=== PATIENT | female | born 1955 | race Caucasian/White ===

== ENCOUNTER → 2017-09-06 | Outpatient (CLI) | payer BC | LOC: FIMAGING 13:55 | PROVIDERS: ATTEND Family Medicine | DX: Z12.31 Encounter for screening mammogram for malignant neoplasm of breast (principal) ==

== ENCOUNTER 2017-11-22 13:26 | Emergency (ER) | payer BC ==
--- NOTE | 2017-11-22 13:48 | CPEKG ---
Heart Rate: 92 RR Interval: 652 P-R Interval: 160 QRSD Interval: 84 QT Interval: 356 QTC Interval: 441 P [place]: 65 QRS [place]: 18 T Wave [place]: 31 EKG Severity - OTHERWISE NORMAL ECG - EKG Impression: SINUS RHYTHM Electronically Signed By: Carlito Moise 22-Nov-2017 20:40:51
--- NOTE | 2017-11-22 13:53 | EDPHY ---
HPI/HX/ROS/PE/MDM Narrative: CHIEF COMPLAINT: Right-sided chest pain HPI: The patient is a 62 y/o female complaining of sudden onset sharp right-sided chest pain onset at 12:00, 2 hours ago, while she was on a bike ride. She had a similar pain around 8 years ago while training for a marathon. At this time she had a normal cardiac workup that included labs, EKG, and a cardiac stress test. For the last several months the chest pain has occurred while cycling, but it has always improved on it's own. Today while she was 35 miles into her bike ride , this sharp, constant, shooting chest pain began. These symptoms did not improve, so she decided to present to the emergency department. Since arriving to the ED and lying down, her chest pain has improved and she does not feel short of breath. Moving her right arm has no effect on the pain. She denies pulmonary or cardiac problems, calf swelling. 10 days ago she began to take Wellbutrin. Denies headache, abdominal pain, vomiting, urinary or bowel complaints, numbness, paresthesia, fever. REVIEW OF SYSTEMS: Aside from elements discussed in the HPI, a comprehensive 10-point review of systems was reviewed and is negative. PMH: Denies SOCIAL HISTORY: at bedside, lives in [place], retired PHYSICAL EXAM: General: Patient is alert, in no acute distress. ENT: Eyes are normal to inspection. ENT inspection normal. Neck: Normal inspection. Full range of motion. Respiratory: No respiratory distress. Breath sounds normal bilaterally. Cardiovascular: Regular rate and rhythm. Strong peripheral pulses. Normal cap refill. Abdomen: The abdomen is nontender to palpation. There are no peritoneal signs. There are normal bowel sounds. Back: Normal to inspection. No tenderness to palpation. Skin: Normal color. No rash. Warm and dry. Extremities: Normal appearance. Full range of motion. Neuro: Oriented x3. Normal motor function. Normal sensory function. ED Course: 1346: EKG was ordered and interpreted by myself. Please see [facility] system for official reading. 1440: Patient has a normal chest x-ray. 1513: Reassessed patient and discussed normal laboratory and imaging findings. She is declining a second troponin. I have advised her to follow up with a clinical laboratory assistant. Return precautions provided; patient is comfortable with this plan. MDM: This patient presents with atypical chest pain that occurred during long distance cycle ride. Her workup in the ED is normal including ECG, CXR and troponin. She does not endorse risk factors for PE nor pleuritic nature of chest pain, and since her symptoms have completely resolved, I think PE is very unlikely. Her HEART score is very low and I discussed this with her. She declines additional troponin or admission to the hospital for further testing. She understands that we cannot rule out CAD or other pathology fully here in the ED and I strongly recommended urgent follow-up with a [facility], and have given her referral to [facility]. I advised her to discontinue exercise until seen by Cardiology and she agrees. - Data Points Imaging Results: Imaging Impressions Chest X-Ray 11/22/17 14:18 Impression: No acute pulmonary disease. Imaging: I viewed and interpreted images myself Laboratory Results: Laboratory Results 11/22/17 13:57 11/22/17 13:57 11/22/17 11/22/17 11/22/17 13:57 13:57 13:57 WBC 10.40 10^3/uL H 10^3/uL (3.80-9.50) RBC 4.48 10^6/uL 10^6/uL (4.18-5.33) Hgb 13.4 g/dL g/dL (12.6-16.3) Hct 40.1 % % (38.0-47.0) MCV 89.5 fL fL (81.5-99.8) MCH 29.9 pg pg (27.9-34.1) MCHC 33.4 g/dL g/dL (32.4-36.7) RDW 14.1 % % (11.5-15.2) Plt Count 308 10^3/uL 10^3/uL (150-400) MPV 9.5 fL fL (8.7-11.7) Neut % (Auto) 71.2 % % (39.3-74.2) Lymph % (Auto) 21.9 % % (15.0-45.0) [place] % (Auto) 6.3 % % (4.5-13.0) Eos % (Auto) 0.2 % L % (0.6-7.6) Baso % (Auto) 0.2 % L % (0.3-1.7) Nucleat RBC Rel Count 0.0 % % (0.0-0.2) Absolute Neuts (auto) 7.41 10^3/uL H 10^3/uL (1.70-6.50) Absolute Lymphs (auto) 2.28 10^3/uL 10^3/uL (1.00-3.00) Absolute Monos (auto) 0.65 10^3/uL 10^3/uL (0.30-0.80) Absolute Eos (auto) 0.02 10^3/uL L 10^3/uL (0.03-0.40) Absolute Basos (auto) 0.02 10^3/uL 10^3/uL (0.02-0.10) Absolute Nucleated RBC 0.00 10^3/uL 10^3/uL (0-0.01) Immature Gran % 0.2 % % (0.0-1.1) Immature Gran # 0.02 10^3/uL 10^3/uL (0.00-0.10) Sodium 136 mEq/L mEq/L (135-145) Potassium 5.0 mEq/L mEq/L (3.3-5.0) Chloride 101 mEq/L mEq/L (97-110) Carbon Dioxide 23 mEq/l mEq/l (22-31) Anion Gap 12 mEq/L mEq/L (8-16) BUN 21 mg/dL mg/dL (7-23) Creatinine 0.9 mg/dL mg/dL (0.6-1.0) Estimated GFR > 60 Glucose 89 mg/dL mg/dL (70-100) Calcium 10.3 mg/dL mg/dL (8.5-10.4) POC Troponin I 0.02 ng/mL ng/mL (0.00-0.08) Medications Given: Discontinued Medications Sodium Chloride (Ns) 1,000 mls @ 0 mls/hr IV EDNOW ONE; Wide Open PRN Reason: Protocol Stop: 11/22/17 14:19 Last Admin: 11/22/17 14:35 Dose: 1,000 mls Point of Care Test Results: Chemistry 11/22/17 13:57 POC Troponin I 0.02 ng/mL ng/mL (0.00-0.08) General Time Seen by Provider: 11/22/17 13:52 Initial Vital Signs: Initial Vital Signs Temperature (C) 36.6 C 11/22/17 13:30 Heart Rate 101 H 11/22/17 13:30 Respiratory Rate 20 11/22/17 13:30 Blood Pressure 160/97 H 11/22/17 13:30 O2 Sat (%) 95 11/22/17 13:30 O2 Delivery Mode Room Air Allergies/Adverse Reactions: No Known Allergies Allergy (Unverified 11/22/17 13:29) Home Medications: Medication Instructions Recorded Wellbutrin 100mg (*) 11/22/17 Departure - Departure Disposition: Home, Routine, Self-Care Clinical Impression: Chest pain, Shortness of breath Condition: Good Instructions: Chest Pain (ED), Shortness of Breath (ED) Additional Instructions: Follow-up with your primary doctor within 72 hours. Return to the Emergency Department for fever, chest pain, shortness of breath, increasing pain or other worsening of condition. Follow up with a clinical laboratory assistant for further testing, as soon as possible, within one week. As we discussed, it is impossible to fully rule out heart disease as the cause of your chest pain in the emergency department. We would be happy to reevaluate you and observe you in the hospital at any time. Referrals: Aaron Interiano MD [Primary Care Provider] - As per Instructions uSdhakar Beauchamp MD [Medical Doctor] - As per Instructions Report Scribed for: Carlito Moise Report Scribed by: Zaida Adhikari Date of Report: 11/22/17 Time of Report: 13:53 Physician Review and Approval Statement: Portions of this note were transcribed by an ED scribe. I personally performed the history, physical exam, and medical decision making; and confirm the accuracy of the information in the transcribed note.
[2017-11-22] MEDS ORDERED: NS 1,000 ML IV ONE (14:18)
[2017-11-22 14:26] LABS: PLATELET COUNT 308 10^3/uL (150-400)
[2017-11-22 15:55] VITALS: BP 150/88
== END 2017-11-22 15:53 | disposition home or self-care (01) ==
DX: R07.9 Chest pain, unspecified (principal); R06.02 Shortness of breath; E86.9 Volume depletion, unspecified
CPT/HCPCS: 84484-PO

== ENCOUNTER → 2017-12-23 | Outpatient (CLI) | payer BC ==
[~2017-12-23] MED LIST: IOPAMIDOL (ISOVUE 370) 100 ML BTL IV ONE
== END ==
LOC: FIMAGING 13:21
PROVIDERS: ATTEND Internal Medicine Interventional Cardiology
DX: R07.9 Chest pain, unspecified (principal)
CPT/HCPCS: Q9967